=== PATIENT | male | born 1965 | race Hispanic/Latino ===

== ENCOUNTER 2017-11-01 19:11 | Emergency (ER) | payer MEDICARE ==
[~2017-11-01] VITALS: Ht 172.7 cm; Wt 99.8 kg
[2017-11-01] MEDS ORDERED: METHYLPREDNISOLONE SOD SUCC 125 MG/2ML VIAL IV ONE (20:30)
[2017-11-01] MEDS ORDERED: IPRATROPIUM BROMIDE 0.02% 2.5 ML NEB NEB ONE (20:30)
[2017-11-01] MEDS ORDERED: ALBUTEROL SULF 0.083% NEB SOLN 3 ML NEB NEB STA (20:30)
[2017-11-01 20:35] LABS: BASOPHILS % 0.5 % (0.0-1.0); EOSINOPHILS # (AUTO) 0.2 (0.0-0.4); EOSINOPHILS % 2.6 % (0.0-6.0); HEMATOCRIT 52.8 % (38.2-49.6); HEMOGLOBIN 18.3 g/dL (14.0-18.0); LYMPHOCYTES % 23.3 % (18.0-39.1); MEAN CORPUSCULAR HEMOGLOBIN 31.9 pg (28-32); MEAN CORPUSCULAR HGB CONC 34.7 g/dL (31-35); MONOCYTES # (AUTO) 0.8 (0.2-0.8); MONOCYTES % 8.8 % (4.4-11.3); NEUTROPHILS # (AUTO) 5.5 (2.1-6.9); NEUTROPHILS % 64.3 % (38.7-80.0); PLATELET COUNT 199 x10e3/uL (140-360); RED BLOOD COUNT 5.74 x10e6/uL (4.3-5.7); RED CELL DISTRIBUTION WIDTH 12.1 % (11.7-14.4)
[2017-11-01 20:39] LABS: INR 0.99; PROTHROMBIN TIME 13.6 seconds (11.9-14.5)
[2017-11-01 20:40] LABS: PARTIAL THROMBOPLASTIN TIME 30.4 seconds (23.8-35.5)
--- NOTE | 2017-11-01 20:42 | Diagnostic Imaging Report ---
CHEST 2 VIEWS, Technique: CHEST 2 VIEWS Comparison: None Clinical history: Cough DISCUSSION: Bilateral peribronchial cuffing/opacity. Otherwise normal appearance of the heart, mediastinum, and pleural spaces. IMPRESSION: Findings which can be seen with small airways disease or bronchitis. No consolidation. Signed by: Dr Katelin Figueroa MD on 11/01/2017 8:39 PM
[2017-11-01 20:46] LABS: ALANINE AMINOTRANSFERASE 56 IU/L (0-55); ALBUMIN/GLOBULIN RATIO 0.9 (0.8-2.0); ALKALINE PHOSPHATASE 77 IU/L (40-150); ANION GAP 14.7 mmol/L (8-16); BLOOD UREA NITROGEN 7 mg/dL (7-26); BUN/CREATININE RATIO 9 (6-25); CALCIUM 9.6 mg/dL (8.4-10.2); CARBON DIOXIDE 26 mmol/L (22-29); CHLORIDE 103 mmol/L (98-107); CREATINE KINASE 176 IU/L (30-200); CREATININE, SERUM 0.81 mg/dL (0.72-1.25); EST GLOMERULAR FILTRATION RATE > 60 ML/MIN (60-); GLUCOSE 88 mg/dL (74-118); POTASSIUM 3.7 mmol/L (3.5-5.1); SODIUM 140 mmol/L (136-145)
[2017-11-01 20:52] LABS: TROPONIN I 0.008 ng/mL (0-0.300)
[2017-11-01 21:41] LABS: INFLUENZAE A&B ANTIGEN (RAPID) NEGATIVE (NEGATIVE); STREPTOCOCCUS GRP A ANTIGEN NEGATIVE (NEGATIVE)
[2017-11-01 22:45] VITALS: BP 121/75
== END 2017-11-01 23:14 | disposition home or self-care (01) ==
LOC: ER 19:11
DX: R05 Cough (principal); R07.89 Other chest pain; J20.9 Acute bronchitis, unspecified; F17.210 Nicotine dependence, cigarettes, uncomplicated
CPT/HCPCS: 36415; 71020; 80053; 82550; 82553; 83518; 84484; 85025; 85610; 85730; 87070; 87400; 93005; 96374; 99284; J2930

== ENCOUNTER 2022-05-07 20:19 | Observation (INO) | payer MEDICARE ==
[~2022-05-07] VITALS: Ht 152.4 cm; Wt 106.6 kg
[~2022-05-07 20:19] MED LIST: LISINOPRIL2.5 MG PO
[2022-05-07 20:52] LABS: BASOPHILS % 0.5 % (0.0-1.0); EOSINOPHILS # (AUTO) 0.4 (0.0-0.4); EOSINOPHILS % 6.2 % (0.0-6.0); HEMATOCRIT 34.4 % (38.2-49.6); HEMOGLOBIN 10.6 g/dL (14.0-18.0); LYMPHOCYTES # (AUTO) 1.3 (1.0-3.2); LYMPHOCYTES % 22.7 % (18.0-39.1); MEAN CORPUSCULAR HEMOGLOBIN 25.9 pg (28-32); MEAN CORPUSCULAR HGB CONC 30.8 g/dL (31-35); MEAN CORPUSCULAR VOLUME 83.9 fL (81-99); MONOCYTES # (AUTO) 0.6 (0.2-0.8); MONOCYTES % 10.3 % (4.4-11.3); NEUTROPHILS # (AUTO) 3.5 (2.1-6.9); RED CELL DISTRIBUTION WIDTH 18.8 % (11.7-14.4)
[2022-05-07 21:01] LABS: PLATELET COUNT 55 x10e3/uL (140-360)
[2022-05-07 21:10] LABS: ALBUMIN 2.6 g/dL (3.5-5.0); ALBUMIN/GLOBULIN RATIO 0.7 (0.8-2.0); ANION GAP 13.3 mmol/L (8-16); CREATININE, SERUM 0.83 mg/dL (0.72-1.25); POTASSIUM 4.3 mmol/L (3.5-5.1)
[2022-05-07] MEDS ORDERED: IOPAMIDOL 370 MG/ML 100 ML INFUS..BTL INJ ONE (21:28)
[2022-05-07] MEDS ORDERED: ONDANSETRON HCL INJ 2MG/ML 2ML 2 MG/ML VIAL IV STA (21:42)
[2022-05-07] MEDS ORDERED: Morphine 4mg INJECTION 4 MG/ML INJ IV ONE (21:45)
[2022-05-07] MEDS ORDERED: ONDANSETRON HCL INJ 2MG/ML 2ML 2 MG/ML VIAL IV PRN (22:30)
[2022-05-07] MEDS ORDERED: Morphine 4mg INJECTION 4 MG/ML INJ IV PRN (22:30)
[2022-05-07 23:34] LABS: CLARITY,URINE CLEAR (CLEAR); COLOR,URINE YELLOW (YELLOW); KETONES,URINE NEGATIVE (NEGATIVE); LEUKOCYTE ESTERASE ,URINE NEGATIVE (NEGATIVE); NITRITE,URINE NEGATIVE (NEGATIVE); PROTEIN,URINE DIPSTICK NEGATIVE (NEGATIVE)
[2022-05-07 23:37] LABS: BACTERIA,URINE FEW /HPF; EPITHELIAL CELLS,URINE RARE /LPF; RBC,URINE 0-5 /HPF (0-5); WBC,URINE (MAN) 0-5 /HPF (0-5)
[2022-05-08] MEDS: SODIUM CHLORIDE 0.9% 1000ML 1,000 ML IV SCH ×2 (01:04→06:09)
[2022-05-08] MEDS ORDERED: METOPROLOL TART50 MG PO (01:12)
[2022-05-08] MEDS ORDERED: FUROSEMIDE40 MG PO (01:13)
[2022-05-08] MEDS ORDERED: SPIRONOLACTONE25 MG PO (01:13)
[2022-05-08 06:12] VITALS: BP 124/82
[2022-05-08 07:57] VITALS: BP 115/74
[2022-05-08 08:00] VITALS: BP 115/74
[2022-05-08 10:28] LABS: INR 1.61; PROTHROMBIN TIME 20.5 seconds (11.9-14.5)
[2022-05-08] MEDS ORDERED: LACTULOSE SYRUP 20 GM/30 ML UDC PO PRN (11:15)
[2022-05-08] MEDS ORDERED: FUROSEMIDE INJ 10 MG/ML 4 ML VIAL IV SCH ×2 (11:30→16:00)
[2022-05-08 11:52] VITALS: BP 129/79
[2022-05-08] MEDS ORDERED: ALBUMIN 25% 25GM 100ML 0.25 GM/ML BTL IV ONE ×2 (12:45→13:00)
[2022-05-08] MEDS ORDERED: ALBUMIN 25% 12.5GM 50ML 100 ML IV ONE (13:00)
[2022-05-08] MEDS ORDERED: ALBUMIN 25% 25GM 100ML 100 ML IV ONE ×2 (13:15→14:30)
[2022-05-08 15:52] LABS: CHOL/HDL RATIO 4.4 (3.9-4.7)
[2022-05-08 15:58] VITALS: BP 147/76
[2022-05-08] MEDS ORDERED: LASIX20 MG PO (16:45)
[2022-05-08] MEDS ORDERED: METOPROLOL TARTRATE 50 MG TAB PO SCH (17:00)
[2022-05-09] MEDS ORDERED: SPIRONOLACTONE 25 MG TAB PO SCH (09:00)
== END 2022-05-08 18:19 | disposition home or self-care (01) ==
LOC: ER 20:32 → ERHOLD 22:23 → MED/SURG3 23:00
PROVIDERS: ADMIT Internal Medicine; ATTEND Internal Medicine
DX: K70.31 Alcoholic cirrhosis of liver with ascites (principal); E87.6 Hypokalemia; D69.6 Thrombocytopenia, unspecified; F10.20 Alcohol dependence, uncomplicated; E78.5 Hyperlipidemia, unspecified; E78.00 Pure hypercholesterolemia, unspecified; Z20.822 Contact with and (suspected) exposure to COVID-19
CPT/HCPCS: 36415 ×2; 49083; 74177; 74470; 80053; 80061; 81001; 82140; 83036; 83690; 85025; 85610; 94760; 97116; 97161; 99284; G0378 ×2; J1940; J2270 ×2; J2405 ×2; J7030; P9047; Q9967; U0002

== ENCOUNTER 2022-05-12 21:22 | Emergency (ER) | payer MEDICARE ==
[~2022-05-12] VITALS: Ht 304.8 cm; Wt 106.6 kg
[~2022-05-12 21:22] MED LIST changes: +FUROSEMIDE40 MG PO; +LASIX20 MG PO; +METOPROLOL TART50 MG PO; +SPIRONOLACTONE25 MG PO
[2022-05-12 22:54] LABS: BASOPHILS % 0.5 % (0.0-1.0); EOSINOPHILS # (AUTO) 0.2 (0.0-0.4); EOSINOPHILS % 3.8 % (0.0-6.0); HEMATOCRIT 35.5 % (38.2-49.6); HEMOGLOBIN 11.1 g/dL (14.0-18.0); LYMPHOCYTES # (AUTO) 1.1 (1.0-3.2); LYMPHOCYTES % 19.3 % (18.0-39.1); MEAN CORPUSCULAR HEMOGLOBIN 26.2 pg (28-32); MEAN CORPUSCULAR HGB CONC 31.3 g/dL (31-35); MEAN CORPUSCULAR VOLUME 83.7 fL (81-99); MONOCYTES # (AUTO) 0.5 (0.2-0.8); MONOCYTES % 9.4 % (4.4-11.3); NEUTROPHILS # (AUTO) 3.7 (2.1-6.9); NEUTROPHILS % 66.8 % (38.7-80.0); PLATELET COUNT 52 x10e3/uL (140-360); RED BLOOD COUNT 4.24 x10e6/uL (4.3-5.7); RED CELL DISTRIBUTION WIDTH 17.8 % (11.7-14.4)
[2022-05-12 23:02] LABS: INR 1.49; PROTHROMBIN TIME 19.3 seconds (11.9-14.5)
[2022-05-12 23:03] LABS: PARTIAL THROMBOPLASTIN TIME 35.8 seconds (23.8-35.5)
[2022-05-12 23:11] LABS: ALBUMIN/GLOBULIN RATIO 0.9 (0.8-2.0); ANION GAP 12.7 mmol/L (8-16); CREATININE, SERUM 0.81 mg/dL (0.72-1.25); POTASSIUM 3.7 mmol/L (3.5-5.1)
[2022-05-13 00:09] VITALS: BP 158/80
== END 2022-05-13 00:11 | disposition home or self-care (01) ==
LOC: ER 21:33
DX: K70.31 Alcoholic cirrhosis of liver with ascites (principal); K72.90 Hepatic failure, unspecified without coma; E72.20 Disorder of urea cycle metabolism, unspecified; I10 Essential (primary) hypertension; E78.5 Hyperlipidemia, unspecified
CPT/HCPCS: 36415; 71045; 80053; 82140; 83735; 85025; 85610; 85730; 99283